=== PATIENT | male | born 1965 | race African-American/Black ===

== ENCOUNTER 2018-07-17 21:12 | Emergency (ER) | payer OTHER ==
[~2018-07-17] VITALS: Ht 193 cm; Wt 99.8 kg
[2018-07-17 21:13] VITALS: BP 182/117
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
[2018-07-17] MEDS ORDERED: silver sulfADIAZINE 1% CREAM 25GM TUBE. TP ONE (22:00)
[2018-07-17] MEDS ORDERED: DIPHTH,PERTUSS(ACELL),TET TOX 0.5 ML DISP.SYRIN. VAX IM ONE (22:00)
[2018-07-17] MEDS ORDERED: HYDROcodone/APAP 5/325MG 1 TAB TABLET PO ONE (22:00)
[2018-07-17] MEDS ORDERED: HYDR-971 PO (23:13)
== END 2018-07-17 23:20 | disposition home or self-care (01) ==
LOC: ER 21:12
DX: T23.242A Burn of second degree of multiple left fingers (nail), including thumb, initial encounter (principal); K13.0 Diseases of lips; F17.210 Nicotine dependence, cigarettes, uncomplicated; X19.XXXA Contact with other heat and hot substances, initial encounter; Y93.G3 Activity, cooking and baking; Y92.89 Other specified places as the place of occurrence of the external cause; Y99.8 Other external cause status
CPT/HCPCS: 16020; 90471; 90715; 99284-25